=== PATIENT | male | born 1940 | race Caucasian/White ===

== ENCOUNTER → 2022-08-07 | Outpatient (CLI) | payer MEDICARE, BC ==
--- NOTE | 2022-08-07 14:58 | CT ---
EXAMINATION TYPE: CT angio abdomen pelvis DATE OF EXAM: 08/07/2022 COMPARISON: None available HISTORY: 81-year-old male I71.4, Follow up to AAA repair TECHNIQUE: CT of the abdomen and pelvis before and after administration of 100 ml Isovue-370 IV contr ast. Delayed images through the abdominal aorta and coronal/sagittal reconstructions performed. 3-D reconstructions generated on a dedicated independent workstation. CT DLP: 2501 mGycm Automated exposure control for dose reduction was used. FINDINGS: Heart upper limits of normal in size without pericardial effusion. Some emphysematous change in stran dy scarring or atelectasis in the lower lungs. No pleural effusion. There are a few scattered small hepatic cysts are noted measuring up to 1 cm. No abnormal gallbladder distention. Indeterminate 1.6 cm nodule right adrenal gland. On the noncontrast series, this does not meet criter ia for a lipid rich adrenal adenoma. 6 month follow-up CT recommended to reassess. Additional nodular thickening of the left adrenal gland up to 1.7 x 0.9 cm. A few benign cortical cysts within the kidneys measuring up to 9 mm. Symmetric uptake of contrast fro m both kidneys. There is delayed excretion. Correlate with BUN/creatinine to exclude acute kidney inj ury. Ventral abdominal wall mesh repair. No dilated bowel, free fluid, or free air. No mesenteric or retroperitoneal lymphadenopathy. Mild to moderate stool burden. Left-sided colonic diverticulosis. No pericolonic inflammatory change. Some questionable eccentric soft tissue thickening versus adherent stool material along the left late ral wall of the lower rectum, axial image 203. Correlate for any rectal bleeding and with direct insp ection/physical exam to exclude neoplasm here. Prostate gland measures 4.3 cm wide. Bladder partially distended. Patulous right inguinal canal. No a bnormal fluid collection in the pelvis or pelvic lymphadenopathy. Bones: Moderate degenerative disc disease L3-4 and L4-L5. Facet arthropathy lower lumbar spine. Bilat eral L5 pars defect with a trace grade 1 anterolisthesis at L5-S1. 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 There is collateral flow from prominent pancreatico duodenal branches arising from the SMA. There is moderate atherosclerotic narrowing at the proximal S MA. Possible 1.2 cm focal dilatation/protuberance at the origin of the SMA. Moderate atherosclerotic narrowing at the origin of the bilateral renal arteries. There is distal abd ominal aortic repair of the large anteriorly projecting saccular aneurysm which measures up to 8.4 cm wide and 8.2 cm AP. No abnormal contrast is seen within the excluded aneurysmal sac. There is ectasia up to 1.5 cm at the left common iliac artery bifurcation. IMPRESSION: 1. INFRARENAL ABDOMINAL AORTIC ANEURYSM REPAIR. NO ENDOLEAK IDENTIFIED. THE APACHE TRIBE OF [place] SAC SHOWS ANTERIOR SACCULAR PROJECTION AND MEASURES 8.4 X 8.2 CM. RECOMMEND COMPARING THESE MEASUREMENTS WITH ANY AVAIL ABLE OUTSIDE PRIORS. 2. ECTASIA AT THE LEFT COMMON ILIAC ARTERY BIFURCATION AT 1.5 CM. 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 MODERATE NARROWING PROXIMAL SMA. 3. BILATERAL ADRENAL GLAND NODULARITY MEASURING UP TO 1.7 CM. CORRELATE WITH ANY OUTSIDE PRIORS FOR S TABILITY. OTHERWISE, RECOMMEND 6 MONTH FOLLOW-UP ADRENAL MASS PROTOCOL CT TO FURTHER ASSESS. 4. Either adherent stool material or abnormal mural based soft tissue thickening along the left later al wall of the lower rectum. Correlate for any rectal bleeding and with physical exam/direct inspecti on to exclude neoplasm here. 5. Bilateral L5 pars defects with trace grade 1 anterolisthesis at L5-S1. Some emphysematous change i n the lower lungs.
== END | disposition home or self-care (01) ==
LOC: RADCTMAIN 12:56
PROVIDERS: ATTEND Surgery
DX: I71.43 Infrarenal abdominal aortic aneurysm, without rupture (principal); M43.17 Spondylolisthesis, lumbosacral region; J43.9 Emphysema, unspecified
CPT/HCPCS: 74174; Q9967

== ENCOUNTER → 2023-08-15 | Outpatient (CLI) | payer OTHER ==
--- NOTE | 2023-08-15 14:13 | CT ---
EXAMINATION TYPE: CT brain wo con DATE OF EXAM: 08/15/2023 COMPARISON: HISTORY: PAIN IN POSTERIOR UPPER NECK AND POSTERIOR HEAD, PAIN IN NECK WHEN PIVOTING CT DLP: 1116.70 mGycm Automated exposure control for dose reduction was used. FINDINGS: The ventricles, basal cisterns and sulci over convexities are moderately enlarged consistent with mod erate generalized atrophy but appropriate for the patient's age. There is marked diffuse decreased density in the periventricular white matter consistent with marked chronic ischemic white matter demyelination. There is no mass effect or shift of midline structures. There is no acute intra or extra-axial hemorrhage. The posterior fossa including the brainstem, fourth ventricle and cerebellar pontine angles are gross ly normal. The intraorbital contents appear normal and symmetric. Visualized paranasal sinuses and mastoid air cells are well aerated. IMPRESSION: 1. No acute bleed or mass effect. 2. Moderate age-appropriate atrophy. 3. Marked chronic ischemic white matter demyelination.
== END | disposition home or self-care (01) ==
LOC: RADCTMAIN 13:37
DX: I67.82 Cerebral ischemia (principal); G31.1 Senile degeneration of brain, not elsewhere classified; R90.82 White matter disease, unspecified
CPT/HCPCS: 70450

== ENCOUNTER → 2024-01-29 | Outpatient (CLI) | payer OTHER ==
[2024-01-29 11:14] VITALS: BP 155/73; PULSE 81; RESP 16; TEMP 97.7
--- NOTE | 2024-01-29 14:49 | P.PAINPG ---
PQRS Measure Charge Sheet Comment: HISTORY OF PRESENT ILLNESS: A 83 yr old male w at side as a referral from Dr Xie presents today w severe and chronic LBP > 1 yr secondary to DDD, spondylosis and facet arthropathy without myelopathy for evaluation. Pt states pain level is provoked at 10 /10 in intensity, intermittent, localized in the lower lumbar spine, predominantly axial, dull in character w occasional shooting pain towards the R hip. Pain is provoked by walking/ standing for periods > 10 min. Pain is alleviated by PT x 6 wks which ended in Dec 2023, physician guided home exercises/ stretches every night since Dec 2023, heat, medications (Tyl), topical BioFreeze Gel, repositioning and rest . Oswestry axial pain score at 24. PMH: OA, HTN PSH: Bladder CA Excision (2017), Hernia Repair, AAA Repair (2008) SH: Hx of tobacco use, No ETOH use, No illicit drug use. . FH: Noncontributory All: See list Meds: See list REVIEW OF ORGAN SYSTEMS: CONSTITUTIONAL: No fevers or chills. No recent weight loss. NEUROLOGICAL: + numbness and tingling along the distal extremities. No seizure disorders or headaches. MUSCULOSKELETAL: + pain PSYCHIATRIC: Denies current depression or suicidal thoughts. Physical Examinations : Constitutional : Cooperative , not in acute distress . Neurologic : Cranial nerve II to XII intact. No focal neurological deficits. Psychiatric : alert & oriented x 3. Matching mood & appropriate affect. Judgment & insight intact. Musculoskeletal : Cervical Spine Motor strength in the deltoid and biceps: Normal right side. Normal Left side Motor strength biceps and the wrist extensors: Normal right side . Normal left side Motor strength in the triceps muscle: Normal right side. Normal left side Deep tendon reflexes: Normal at the biceps. Normal at Brachioradialis. Normal at triceps Vertebral body tenderness to deep palpation over Cervical facet loading test: positive bilaterally Spurling test: positive bilaterally Neck distraction test: positive bilaterally Jomar sign: positive bilaterally Lumbar spine Motor strength lower extremities ,thigh and legs 5/5 Right side , 5/5 Left side Deep tendon reflexes : Normal Knee Jerk. Normal Ankle Jerk Vertebral body tenderness over L4 Orellana Test positive Lumbar facet Loading Test: positive Right / positive Left Range of motion of the lumbar spine Flexion 30 degrees, extension 10 degrees Straight Leg Raise test: Left/ Right positive at <40 degrees Michi test: positive right / positive left Severe tenderness over the Sacroiliac joint on the Right / Left sides Gaenslen test: positive bilaterally Seated flexion test: positive bilaterally. Sacral spine : Severe tenderness over the Sacroiliac joint: right side / left side Range of motion: Flexion of the lumbar spine <60 degrees Range of motion: Extension of the lumbar spine <20 degrees Gaenslen's Test positive Michi test: positive right side / left side Thigh Thrust Test Sacral Thrust Test Imaging: MRI noncontrast of the lumbar spine from 11/17/2023 reviewed Assessment/ Plan : L4-5 stenosis, Lumbar DDD Recommendation of JOHN L4-L5 #1. May need a series of injections for optimal pain relief. Risks, benefits of procedure discussed and patient verbalized understanding. Admits to anti- coagulant use or medical history of diabetes. Protocol for discontinuation/ continuation of medications estephanie procedure discussed. Minimal anesthesia provided, if clinically indicated, consisting of Versed and Fentanyl. All questions answered. I have spent greater than 30 minutes on patient care today. Dr Mora was available by phone for the evaluation of this patient. The time was used to review the medical records including relevant urine studies and Prescription history (MAPs), review of the available imaging, evaluation and examination of the patient, coordination of care with the medical staff and if applicable referring physicians, as well as creation of the medical record Home Medications: Ambulatory Orders diazePAM [Valium] 5 mg PO DAILY PRN 1 Days #2 tab 01/29/24 Controlled Substance Measures - Controlled Substance Measures Is patient prescribed a controlled substance at discharge?: Yes When asked, does pt state using other controlled substances?: No If prescribed controlled substance>3 days was MAPS reviewed?: Prescribed <3 Days
== END ==
LOC: PNWHC3 09:33
PROVIDERS: ATTEND Specialist
DX: M47.896 Other spondylosis, lumbar region (principal); M51.36 Other intervertebral disc degeneration, lumbar region; M48.061 Spinal stenosis, lumbar region without neurogenic claudication; Z87.891 Personal history of nicotine dependence
CPT/HCPCS: 99211

== ENCOUNTER 2024-02-10 11:26 | Day surgery (SDC) | payer OTHER ==
[~2024-02-10 11:26] MED LIST: LACTATED RINGERS 1,000 ML IV SCH
[2024-02-10 12:11] VITALS: TEMP 97
[2024-02-10] MEDS ORDERED: ROPIVACAINE 5MG/ML 20ML VIAL ONE (12:59)
[2024-02-10] MEDS ORDERED: IOPAMIDOL M200 10 ML VIAL ONE (12:59)
[2024-02-10] MEDS ORDERED: TRIAMCINOLONE ACETONIDE 40 MG/ML 1 ML VIAL ONE (12:59)
[2024-02-10 13:29] VITALS: BP 150/72; PULSE 76; RESP 18
--- NOTE | 2024-02-10 14:01 | P.PCN ---
Date of Procedure: 02/10/24 Surgeon: Alli Mcclellan Pathology: none sent Condition: stable Disposition: PACU Description of Procedure: PREOPERATIVE DIAGNOSIS: 1-Lumbar radiculopathy 2- Lumber Degenerative Disc Diseases. POSTOPERATIVE DIAGNOSIS: 1-Lumbar radiculopathy. 2-Lumbar Degenerative Disc Diseases PROCEDURE 1. Lumbar epidural steroid injection under fluoroscopic guidance at the L4-5 level in the right paramedian approach. 2. Lumbar epidurogram. ANESTHESIA: Local only with 1% lidocaine EBL: Minimal PROCEDURE INDICATION: The patient with low back pain and radiculitis symptoms unresponsive to conservative treatment. Fluoroscopy was used to optimize visualization of the needle placement and to maximize safety. PROCEDURE DESCRIPTION / TECHNIQUE: The patient was seen and identified in the preoperative area. Risks, benefits, complications including but not limited to infections ,bleeding ,allergic reaction to the medications ,nerve damage and not complete pain relief , and alternatives were discussed with the patient. The patient agreed to proceed with the procedure and signed the consent. IV was started, and vital signs were stable. Patient was taken to the OR and time out was completed. The patient was placed in the prone position on procedure table and a pillow was placed under the abdomen to reduce lumbar lordosis. The lumbosacral area was prepped and draped in the usual sterile fashion with ChloraPrep.Patient was closely monitored during the procedure. Conscious sedation was used during the procedure to decrease patients anxiety. Vital signs were monitered during the entire pr ocedure. Using anterior-posterior fluoroscopy, the L4-5 interlaminar space was identified and the skin over this site was marked and then infiltrated with 1% lidocaine subcutaneously. Subsequently, a 20-gauge Tuohy epidural needle was inserted and advanced toward the epidural space using the Loss of resistance to air technique and guided by AP and lateral fluoroscopy. The correct needle position in the epidural space was verified with the injection of 1 mL of the water soluble contrast dye Omnipaque 180 contrast and observing an excellent epidurogram with the epidural spread of the dye, after negative aspiration for blood and CSF and in the absence of paresthesias. Again after negative aspiration, a 8 ml mixture containing 40 mg of Kenalog and 5 ml of preservative free Normal Saline, and 2 ml of preservative free Ropivacaine 0.5% solution was injected and a washout of epidurogram was seen. Needle was withdrawn intact, skin was cleansed, and bandages were applied. patient tolerated procedure well and was transferred to PACU in stable condition.A copy of the needle placement picture was saved to the fluoroscopy machine. COMPLICATIONS: None
--- NOTE | 2024-02-10 14:57 | FL ---
EXAMINATION TYPE: FL guided pain mgmt statistic DATE OF EXAM: 02/10/2024 FLUOROSCOPY Fluoroscopy time of 7.7 seconds was used during lumbar epidural steroid injection. 1 image/s documen t/s the procedure. DAP- 0.66703 mGycm2
== END 2024-02-10 13:30 | disposition home or self-care (01) ==
LOC: ORPAIN 11:26
PROVIDERS: ATTEND Anesthesiology
DX: M51.16 Intervertebral disc disorders with radiculopathy, lumbar region (principal); Z79.82 Long term (current) use of aspirin; Z79.899 Other long term (current) drug therapy
CPT/HCPCS: 62323; J3301; Q9966; J2795

== ENCOUNTER → 2024-02-26 | Outpatient (CLI) | payer OTHER ==
[2024-02-26 11:28] VITALS: BP 149/72; PULSE 61; RESP 16
--- NOTE | 2024-02-26 14:24 | P.PAINPG ---
Objective - Vital Signs Vital signs: Vital Signs Temp Pulse 61 02/26/24 11:27 Resp 16 02/26/24 11:27 BP 149/72 02/26/24 11:27 Pulse Ox 96 02/26/24 11:27 FiO2 Intake & Output 02/25/24 02/26/24 02/26/24 18:59 06:59 18:59 Weight 81.647 kg PQRS Measure Charge Sheet Mode of Arrival: Ambulatory Comment: HISTORY OF PRESENT ILLNESS: A 83 yr old male w at side presents today w severe and chronic LBP > 1 yr secondary to DDD, spondylosis and facet arthropathy without myelopathy for evaluation s/p R paramedian JOHN L4-L5 #1. Pt states he experienced 40% pain relief x 4 wks s/p procedure. Pt states pain level is provoked at 10 /10 in intensity, intermittent, localized in the lower lumbar spine, predominantly axial, dull in character w occasional shooting pain towards the R hip. Pain is provoked by walking/ standing for periods > 10 min. Pain is alleviated by PT x 6 wks which ended in Dec 2023, physician guided home exercises/ stretches every night since Dec 2023, heat, medications, topical repositioning and rest . Oswestry axial pain score at 24. Interventional procedures include JOHN L4-L5 x1 Medications include Tyl, BioFreeze Gel REVIEW OF ORGAN SYSTEMS: CONSTITUTIONAL: No fevers or chills. No recent weight loss. NEUROLOGICAL: + numbness and tingling along the distal extremities. No seizure disorders or headaches. MUSCULOSKELETAL: + pain PSYCHIATRIC: Denies current depression or suicidal thoughts. Physical Examinations : Constitutional : Cooperative , not in acute distress . Neurologic : Cranial nerve II to XII intact. No focal neurological deficits. Psychiatric : alert & oriented x 3. Matching mood & appropriate affect. Judgment & insight intact. Musculoskeletal : Cervical Spine Motor strength in the deltoid and biceps: Normal right side. Normal Left side Motor strength biceps and the wrist extensors: Normal right side . Normal left side Motor strength in the triceps muscle: Normal right side. Normal left side Deep tendon reflexes: Normal at the biceps. Normal at Brachioradialis. Normal at triceps Vertebral body tenderness to deep palpation over Cervical facet loading test: positive bilaterally Spurling test: positive bilaterally Neck distraction test: positive bilaterally Jomar sign: positive bilaterally Lumbar spine Motor strength lower extremities ,thigh and legs 5/5 Right side , 5/5 Left side Deep tendon reflexes : Normal Knee Jerk. Normal Ankle Jerk Vertebral body tenderness over L5 Orellana Test positive Lumbar facet Loading Test: positive Right / positive Left Range of motion of the lumbar spine Flexion 30 degrees, extension 10 degrees Straight Leg Raise test: Left/ Right positive at <40 degrees Michi test: positive right / positive left Severe tenderness over the Sacroiliac joint on the Right / Left sides Gaenslen test: positive bilaterally Seated flexion test: positive bilaterally. Sacral spine : Severe tenderness over the Sacroiliac joint: right side / left side Range of motion: Flexion of the lumbar spine <60 degrees Range of motion: Extension of the lumbar spine <20 degrees Gaenslen's Test positive Michi test: positive right side / left side Thigh Thrust Test Sacral Thrust Test Imaging: MRI noncontrast of the lumbar spine from 11/17/2023 reviewed Assessment/ Plan : L4-5 stenosis, Lumbar DDD Recommendation of JOHN L5-S1 #2. May need a series of injections for optimal pain relief. Risks, benefits of procedure discussed and patient verbalized understanding. Admits to anti- coagulant use or medical history of diabetes. Protocol for discontinuation/ continuation of medications estephanie procedure discussed. All questions answered. I have spent greater than 30 minutes on patient care today. Dr Mora was available by phone for the evaluation of this patient. The time was used to review the medical records including relevant urine studies and Prescription history (MAPs), review of the available imaging, evaluation and examination of the patient, coordination of care with the medical staff and if applicable refe rring physicians, as well as creation of the medical record PQRS Narrative: Blood Pressure 149/72 Scale Used Numeric (1 - 10) Hx Alcohol Use (MH) No Home Medications: Ambulatory Orders diazePAM [Valium] 5 mg PO DAILY PRN 1 Days #2 tab 01/29/24 Aspirin [Adult Low Dose Aspirin EC] 81 mg PO DAILY 02/06/24 Simvastatin 40 mg PO HS 02/06/24 amLODIPine [Norvasc] 10 mg PO DAILY 02/06/24 Controlled Substance Measures - Controlled Substance Measures Is patient prescribed a controlled substance at discharge?: No
== END | disposition home or self-care (01) ==
LOC: PNWHC3 10:58
PROVIDERS: ATTEND Specialist
DX: M51.36 Other intervertebral disc degeneration, lumbar region (principal); M47.816 Spondylosis without myelopathy or radiculopathy, lumbar region; M48.061 Spinal stenosis, lumbar region without neurogenic claudication; Z86.39 Personal history of other endocrine, nutritional and metabolic disease
CPT/HCPCS: 99211

== ENCOUNTER 2024-03-23 10:54 | Day surgery (SDC) | payer OTHER ==
[2024-03-18 15:45] VITALS: BMI 30.1
[2024-03-23 11:17] VITALS: TEMP 97.2
[2024-03-23] MEDS ORDERED: DEXAMETHASONE SOD PHOSPHATE 10 MG/ML 1 ML VIAL ONE (12:26)
[2024-03-23] MEDS ORDERED: IOPAMIDOL M200 10 ML VIAL ONE (12:26)
--- NOTE | 2024-03-23 12:35 | P.PCN ---
Date of Procedure: 03/23/24 Surgeon: Alli Mcclellan Pathology: none sent Condition: stable Disposition: PACU Description of Procedure: Preoperative Diagnosis: lumbar radiculopathy Postoperative Diagnosis: Same as above Procedure(s) Performed: Transforaminal epidural steroid injection for level L5- S1 on the right side under fluoroscopic guidance Anesthesia: local only with lidocaine 1% Surgeon: Alli Mcclellan Condition: stable Disposition: PACU Description of Procedure: . The patient was seen and identified in the preoperative area. Risks, benefits, complications, and alternatives were discussed with the patient. The patient agreed to proceed with the procedure and signed the consent. IV was started, and vital signs were stable. Patient was taken to the OR and time out was completed. The patient was placed in the prone position on procedure table and a pillow was placed under the abdomen to reduce lumbar lordosis. The lumbosacral area was prepped and draped in the usual sterile fashion. Critical pause was taken. Vital signs were closely monitored during the procedure. Conscious sedation was used during the procedure to decrease patients anxiety. Lidocaine 1% was used to numb the skin up at the target points that were chosen as follows: For the L5-S1 level the target point was at the 6 o'clock position of L5 pedicle in the Rt oblique view. The correct view was obtained by squaring off the L5 vertebra on the AP view of fluoroscopy then the C-arm was tilted to the Rt oblique position to an angle at which the superior articular process of the lower vertebra would point to the middle of the pedicle above it at the 6 o'clock position as mentioned above . Then I used 3-1/2 inch 22-gauge Quincke spinal needle to get to the target point mentioned above by touching the inferior edge of the L5 pedicle and then walking off the bone and into the superior part of the L5-S1 foramen using the lateral view of fluoroscopy. I then injected 1 mL of Isovue contrast dye which showed typical epidurogram around the L5 nerve root and into the epidural space. Then I injected 1 mL of lidocaine 1% +10 mg of Decadron.. Patient tolerated procedure well,and was transferred to PACU in stable condition. A copy of the needle placement picture was saved to the fluoroscopy machine.
[2024-03-23 12:57] VITALS: BP 143/70; PULSE 74; RESP 17
--- NOTE | 2024-03-23 21:44 | FL ---
Fluoroscopy INDICATION: Pain FINDINGS: Fluoroscopy time: 11.2 seconds. Total dose area product (DAP) in uGy*m?, mGy*cm? (or similar): 0.05688 Images obtained: 3. IMPRESSION: 1. Documentation of fluoroscopy.
== END 2024-03-23 12:58 | disposition home or self-care (01) ==
LOC: ORPAIN 10:54
PROVIDERS: ATTEND Anesthesiology
DX: M54.16 Radiculopathy, lumbar region (principal); I10 Essential (primary) hypertension; Z79.82 Long term (current) use of aspirin; Z79.899 Other long term (current) drug therapy
CPT/HCPCS: 64483; J1100; Q9966

== ENCOUNTER → 2024-04-08 | Outpatient (CLI) | payer OTHER ==
[2024-04-08 11:01] VITALS: BP 138/61; PULSE 88; RESP 19
--- NOTE | 2024-04-08 14:41 | P.PAINPG ---
PQRS Measure Charge Sheet Comment: HISTORY OF PRESENT ILLNESS: A 83 yr old male w at side presents today w severe and chronic LBP > 1 yr secondary to DDD, spondylosis and facet arthropathy without myelopathy, R Hip DJD for evaluation s/p R TFESI L4-L5 #2. Pt states he experienced 80% pain relief x 2 wks s/p procedure. Pt states pain level is provoked at 8 /10 in intensity, intermittent, localized in the R hip, achy in character without shooting pain. Pain is provoked by walking for periods > 10 min. Pain is alleviated by PT x 6 wks which ended in Dec 2023 (lumbar), physician guided home exercises/ stretches every night since Dec 2023 (lumbar , R hip), heat, medications, topical repositioning and rest . Oswestry axial pain score at 24. Interventional procedures include JOHN L4-L5 x1, R TFESI L4-L5 x1 Medications include Tyl, BioFreeze Gel REVIEW OF ORGAN SYSTEMS: CONSTITUTIONAL: No fevers or chills. No recent weight loss. NEUROLOGICAL: + numbness and tingling along the distal extremities. No seizure disorders or headaches. MUSCULOSKELETAL: + pain PSYCHIATRIC: Denies current depression or suicidal thoughts. Physical Examinations : Constitutional : Cooperative , not in acute distress . Neurologic : Cranial nerve II to XII intact. No focal neurological deficits. Psychiatric : alert & oriented x 3. Matching mood & appropriate affect. Judgment & insight intact. Musculoskeletal : Cervical Spine Motor strength in the deltoid and biceps: Normal right side. Normal Left side Motor strength biceps and the wrist extensors: Normal right side . Normal left side Motor strength in the triceps muscle: Normal right side. Normal left side Deep tendon reflexes: Normal at the biceps. Normal at Brachioradialis. Normal at triceps Vertebral body tenderness to deep palpation over Cervical facet loading test: positive bilaterally Spurling test: positive bilaterally Neck distraction test: positive bilaterally Jomar sign: positive bilaterally Lumbar spine +R Hip Trendelenburg Motor strength lower extremities ,thigh and legs 5/5 Right side , 5/5 Left side Deep tendon reflexes : Normal Knee Jerk. Normal Ankle Jerk Vertebral body tenderness over L5 Orellana Test positive Lumbar facet Loading Test: positive Right / positive Left Range of motion of the lumbar spine Flexion 30 degrees, extension 10 degrees Straight Leg Raise test: Left/ Right positive at <40 degrees Michi test: positive right / positive left Severe tenderness over the Sacroiliac joint on the Right / Left sides Gaenslen test: positive bilaterally Seated flexion test: positive bilaterally. Sacral spine : Severe tenderness over the Sacroiliac joint: right side / left side Range of motion: Flexion of the lumbar spine <60 degrees Range of motion: Extension of the lumbar spine <20 degrees Gaenslen's Test positive Michi test: positive right side / left side Thigh Thrust Test Sacral Thrust Test Imaging: MRI noncontrast of the lumbar spine from 11/17/2023 reviewed Assessment/ Plan : L4-5 stenosis, Lumbar DDD, R Hip DJD Recommendation of HEP x 6 wks, documentation provided. Will sign ARMANDO form for imaging release, but if not available, will order CT non contrast R hip M16.10 . May need a series of injections for optimal pain relief. Risks, benefits of procedure discussed and patient verbalized understanding. Admits to anti- coagulant use or medical history of diabetes. Protocol for discontinuation/ continuation of medications estephanie procedure discussed. All questions answered. I have spent greater than 30 minutes on patient care today. Dr Mora was available by phone for the evaluation of this patient. The time was used to review the medical records including relevant urine studies and Prescription history (MAPs), review of the available imaging, evaluation and examination of the patient, coordination of care with the medical staff and if applicable referring physicians, as well as creation of the medical record PQRS Narrative: Hx Alcohol Use (MH) No Home Medications: Ambulatory Orders Aspirin [Adult Low Dose Aspirin EC] 81 mg PO DAILY 02/06/24 Simvastatin 40 mg PO HS 02/06/24 amLODIPine [Norvasc] 10 mg PO DAILY 02/06/24 Controlled Substance Measures - Controlled Substance Measures Is patient prescribed a controlled substance at discharge?: No
== END ==
LOC: PNWHC3 10:38
PROVIDERS: ATTEND Specialist
DX: M51.36 Other intervertebral disc degeneration, lumbar region (principal); M48.061 Spinal stenosis, lumbar region without neurogenic claudication; M16.11 Unilateral primary osteoarthritis, right hip
CPT/HCPCS: 99211

== ENCOUNTER → 2024-04-30 | Outpatient (CLI) | payer OTHER ==
--- NOTE | 2024-05-19 06:36 | CT ---
Patient: Bill Marti Ordering Physician: Unknown, Unknown ID: [id number] Phone, Pager: Phone: N/A Pager: N/A : [phone] Age/Gender: 83Y, N/A Primary Location: N/A Procedure: CT hip RT wo con S tudy Date: 04/30/2024 9:02:00 AM EXAMINATION TYPE: CT hip RT w con DATE OF EXAM: 04/30/2024 COMPARISON: None HISTORY: Pain CT DLP: mGycm Automated exposure control for dose reduction was used. Unenhanced CT of the right hip was submitted. Images are reviewed in the axial coronal and sagittal data sets. FINDINGS: There is mild osteoarthritis of the right hip joint space. Mild acetabular spurring is seen. There is no evidence for fracture or dislocation. No soft tissue mass or fluid collection seen. No bony destr uctive process noted. Fat-containing right inguinal hernia. IMPRESSION: MILD OSTEOARTHRITIS.
== END | disposition home or self-care (01) ==
LOC: RADCTMAIN 08:49
PROVIDERS: ATTEND Specialist
DX: M16.11 Unilateral primary osteoarthritis, right hip (principal)

== ENCOUNTER → 2024-05-03 | Outpatient (CLI) | payer OTHER ==
--- NOTE | 2024-05-03 14:24 | P.PAINPG ---
PQRS Measure Charge Sheet Comment: HISTORY OF PRESENT ILLNESS: A 83 yr old male w at side presents today w severe and chronic LBP > 1 yr secondary to DDD, spondylosis and facet arthropathy without myelopathy, R Hip DJD for CT results. Pt states pain level is provoked at 8 /10 in intensity, intermittent, localized in the R hip, achy in character without shooting pain. Pain is provoked by walking for periods > 10 min. Pain is alleviated by PT x 6 wks which ended in Dec 2023 (lumbar), physician guided home exercises/ stretches every night since Dec 2023 (lumbar , R hip), heat, medications, topical repositioning and rest . Interventional procedures include JOHN L4-L5 x1, R TFESI L4-L5 x1 Medications include Tyl, BioFreeze Gel REVIEW OF ORGAN SYSTEMS: CONSTITUTIONAL: No fevers or chills. No recent weight loss. NEUROLOGICAL: + numbness and tingling along the distal extremities. No seizure disorders or headaches. MUSCULOSKELETAL: + pain PSYCHIATRIC: Denies current depression or suicidal thoughts. Physical Examinations : Constitutional : Cooperative , not in acute distress . Neurologic : Cranial nerve II to XII intact. No focal neurological deficits. Psychiatric : alert & oriented x 3. Matching mood & appropriate affect. Judgment & insight intact. Musculoskeletal : Cervical Spine Motor strength in the deltoid and biceps: Normal right side. Normal Left side Motor strength biceps and the wrist extensors: Normal right side . Normal left side Motor strength in the triceps muscle: Normal right side. Normal left side Deep tendon reflexes: Normal at the biceps. Normal at Brachioradialis. Normal at triceps Vertebral body tenderness to deep palpation over Cervical facet loading test: positive bilaterally Spurling test: positive bilaterally Neck distraction test: positive bilaterally Jomar sign: positive bilaterally Lumbar spine +R Hip Trendelenburg Motor strength lower extremities ,thigh and legs 5/5 Right side , 5/5 Left side Deep tendon reflexes : Normal Knee Jerk. Normal Ankle Jerk Vertebral body tenderness over L5 Orellana Test positive Lumbar facet Loading Test: positive Right / positive Left Range of motion of the lumbar spine Flexion 30 degrees, extension 10 degrees Straight Leg Raise test: Left/ Right positive at <40 degrees Michi test: positive right / positive left Severe tenderness over the Sacroiliac joint on the Right / Left sides Gaenslen test: positive bilaterally Seated flexion test: positive bilaterally. Sacral spine : Severe tenderness over the Sacroiliac joint: right side / left side Range of motion: Flexion of the lumbar spine <60 degrees Range of motion: Extension of the lumbar spine <20 degrees Gaenslen's Test positive Michi test: positive right side / left side Thigh Thrust Test Sacral Thrust Test Imaging: MRI noncontrast of the lumbar spine from 11/17/[address] non contrast of R hip from 04/30/24 reviewed Assessment/ Plan : L4-5 stenosis, Lumbar DDD, Mild R Hip DJD Recommendation of R intra articular joint injection. Risks, benefits of procedure discussed and patient verbalized understanding. Protocol for discontinuation/ continuation of medications estephanie procedure discussed. All questions answered. I have spent greater than 30 minutes on patient care today. Dr Mora was available by phone for the evaluation of this patient. The time was used to review the medical records including relevant urine studies and Prescription history (MAPs), review of the available imaging, evaluation and examination of the patient, coordination of care with the medical staff and if applicable referring physicians, as well as creation of the medical record PQRS Narrative: Hx Alcohol Use (MH) No Home Medications: Ambulatory Orders Aspirin [Adult Low Dose Aspirin EC] 81 mg PO DAILY 02/06/24 Simvastatin 40 mg PO HS 02/06/24 amLODIPine [Norvasc] 10 mg PO DAILY 02/06/24 Controlled Substance Measures - Controlled Substance Measures Is patient prescribed a controlled substance at discharge?: No
[2024-05-03 15:39] VITALS: BP 151/69; PULSE 75; RESP 16; TEMP 97.1
== END ==
LOC: PNWHC3 09:03
PROVIDERS: ATTEND Specialist
DX: M54.50 Low back pain, unspecified
CPT/HCPCS: 99211

== ENCOUNTER 2024-05-11 08:36 | Day surgery (SDC) | payer OTHER ==
[2024-05-06 11:53] VITALS: BMI 29.0
[2024-05-11 09:47] VITALS: TEMP 97.7
[2024-05-11] MEDS ORDERED: methylPREDNISolone ACETATE 80 MG/ML 1 ML VIAL ONE (10:28)
[2024-05-11] MEDS ORDERED: ROPIVACAINE 5MG/ML 20ML VIAL ONE (10:28)
[2024-05-11 10:45] VITALS: RESP 15
[2024-05-11 10:53] VITALS: BP 146/94; PULSE 80
--- NOTE | 2024-05-11 10:54 | P.PCN ---
Description of Procedure: Pre operative Diagnosis: Right-sided Trochanteric Bursitis Postprocedure diagnosis: As above. Procedure: Right greater Trochanteric Bursa injection under fluoroscopic guidance Anesthesia: Local: 1% Lidocaine . Complications: none Indications for Procedure: Patient had a history of greater trochanteric bursitis. Tried conservative therapy with minimal response. Came here for intervention procedure. Procedure and Findings: The patient was seen and examined. The written informed consent was obtained after explaining the risks, benefits and alternatives of the procedure to the patient. Patient agreed to proceed for the procedure signed the informed consent. The patient was brought to the procedure room and was placed in lateral position on the operating table. The skin preparation was done with ChloraPrep 1, and draping was done in usual sterile fashion. Sterile technique was observed throughout the procedure. Using fluoroscope in the AP/lateral view, the greater trochanter was identified. The middle of the greater trochanter was targeted for needle placement. 3 ml of 1% Lidocaine was injected with a 25 gauge needle to achieve adequate local anesthesia of the skin and subcutaneous tissue. then 22 gauge 3.5 inch needle was introduced and advanced into the target area under direct fluoroscopic guidance. A bony contact was felt and the needle was withdrawn for about two millimeters. A negative aspiration was confirmed. then total of 10ml solution containing depo-medrol 40 mg and 9 ml of 0.5% preservative-free ropivacaine was injected slowly. The needle was removed intact, area was cleaned and bandage was applied. The patient tolerated the procedure very well. Additional comments: None Disposition : The patient was transferred to the recovery room and remained stable until discharged home. The patient was given detailed discharge instructions for infection, bleeding, increased pain at the injection site, and was advised to seek immediate medical attention should significant side effects develop. Patient was routinely examined by RN before discharging home. The patient will be followed up with Pain Clinic within 3 weeks.
--- NOTE | 2024-06-08 18:20 | FL ---
EXAMINATION TYPE: FL guided pain mgmt statistic DATE OF EXAM: 05/11/2024 10:41 AM COMPARISON: Pre Operative Images if available both CT/MRI or plain film CLINICAL INDICATION: Male, 83 years old with history of RT bursa injection; TECHNIQUE: FL guided pain mgmt statistic, multiple fluoroscopic images provided for procedure. Total fluoroscopy time: 21 seconds Total submitted images to PACS: 1 DAP: [id number] mGym2 Gycm2 uGym2 cGycm2 or equivalent. FINDINGS: Fluoroscopic images during injection for pain management demonstrate multilevel degeneration changes throughout the spine. No evidence for fracture. No acute process identified. IMPRESSION: 1. No evidence for intraoperative complication. 2. Please see the operative/procedural note for further details. [facility], , 06/08/2024 6:17 PM
== END 2024-05-11 10:53 | disposition home or self-care (01) ==
LOC: ORPAIN 08:36
PROVIDERS: ATTEND Pain Medicine Interventional Pain Medicine
DX: M70.61 Trochanteric bursitis, right hip (principal)
CPT/HCPCS: 20610

== ENCOUNTER → 2024-05-24 | Outpatient (CLI) | payer OTHER ==
[2024-05-24 08:57] VITALS: BP 160/72; PULSE 60; RESP 16; TEMP 97.6
--- NOTE | 2024-05-24 15:08 | P.PAINPG ---
PQRS Measure Charge Sheet Comment: HISTORY OF PRESENT ILLNESS: A 83 yr old male w at side presents today w severe and chronic LBP > 1 yr secondary to radiculopathy, spondylosis, facet arthropathy without myelopathy, R Hip DJD and BL Sacroiliitis for evaluation s/p R intra articular joint injection #1. Pt states he experienced 10 % pain relief x 2 wks s/p procedure. Pt states pain level is provoked at 6 /10 in intensity, intermittent, localized in the R hip, achy in character w shooting pain down R> L buttocks. Pain is provoked by walking for periods > 10 min. Pain is alleviated by PT x 6 wks which ended in Dec 2023 (lumbar), physician guided home exercises/ stretches every night since Dec 2023 (lumbar , R hip), heat, medications, topical repositioning and rest . Interventional procedures include JOHN L4-L5 x1, R TFESI L4-L5 x1, R intra articular joint injection x1 Medications include Tyl, BioFreeze Gel REVIEW OF ORGAN SYSTEMS: CONSTITUTIONAL: No fevers or chills. No recent weight loss. NEUROLOGICAL: + numbness and tingling along the distal extremities. No seizure disorders or headaches. MUSCULOSKELETAL: + pain PSYCHIATRIC: Denies current depression or suicidal thoughts. Physical Examinations : Constitutional : Cooperative , not in acute distress . Neurologic : Cranial nerve II to XII intact. No focal neurological deficits. Psychiatric : alert & oriented x 3. Matching mood & appropriate affect. Judgment & insight intact. Musculoskeletal : Cervical Spine Motor strength in the deltoid and biceps: Normal right side. Normal Left side Motor strength biceps and the wrist extensors: Normal right side . Normal left side Motor strength in the triceps muscle: Normal right side. Normal left side Deep tendon reflexes: Normal at the biceps. Normal at Brachioradialis. Normal at triceps Vertebral body tenderness to deep palpation over Cervical facet loading test: positive bilaterally Spurling test: positive bilaterally Neck distraction test: positive bilaterally Jomar sign: positive bilaterally Lumbar spine +R Hip Trendelenburg Motor strength lower extremities ,thigh and legs 5/5 Right side , 5/5 Left side Deep tendon reflexes : Normal Knee Jerk. Normal Ankle Jerk Vertebral body tenderness over L5 Orellana Test positive Lumbar facet Loading Test: positive Right / positive Left Range of motion of the lumbar spine Flexion 30 degrees, extension 10 degrees Straight Leg Raise test: Left/ Right positive at <40 degrees Michi test: positive right / positive left Severe tenderness over the Sacroiliac joint on the Right / Left sides Gaenslen test: positive bilaterally Seated flexion test: positive bilaterally. Sacral spine : Severe tenderness over the Sacroiliac joint: right side / left side Range of motion: Flexion of the lumbar spine <60 degrees Range of motion: Extension of the lumbar spine <20 degrees Gaenslen's Test positive R> L Michi test: positive right side > left side Thigh Thrust Test BL positive Sacral Thrust Test Imaging: MRI noncontrast of the lumbar spine from 11/17/[address] non contrast of R hip from 04/30/24 reviewed Assessment/ Plan : L4-5 stenosis, Lumbar DDD, Mild R Hip DJD, BL Sacroiliitis Recommendation of BL SI injection #1. Risks, benefits of procedure discussed and patient verbalized understanding. Protocol for discontinuation/ continuation of medications estephanie procedure discussed. All questions answered. I have spent greater than 30 minutes on patient care today. Dr Mora was available by phone for the evaluation of this patient. The time was used to review the medical records including relevant urine studies and Prescription history (MAPs), review of the available imaging, evaluation and examination of the patient, coordination of care with the medical staff and if applicable referring physicians, as well as creation of the medical record - Pain Location Right Hip Non-Pharmacological Interventions: Distraction Pharmacological Interventions: PRN Medication PQRS Narrative: Hx Alcohol Use (MH) No Home Medications: Ambulatory Orders Aspirin [Adult Low Dose Aspirin EC] 81 mg PO DAILY 02/06/24 Simvastatin 40 mg PO HS 02/06/24 amLODIPine [Norvasc] 10 mg PO DAILY 02/06/24 Controlled Substance Measures - Controlled Substance Measures Is patient prescribed a controlled substance at discharge?: No
== END ==
LOC: PNWHC3 08:21
PROVIDERS: ATTEND Specialist
DX: M25.551 Pain in right hip
CPT/HCPCS: 99211

== ENCOUNTER 2024-06-08 10:52 | Day surgery (SDC) | payer BC, MEDICARE, OTHER ==
[2024-06-03 10:39] VITALS: BMI 29.0
[2024-06-08 11:10] VITALS: RESP 16; TEMP 97.4
[2024-06-08] MEDS ORDERED: TRIAMCINOLONE ACETONIDE 40 MG/ML 1 ML VIAL ONE (11:51)
[2024-06-08] MEDS ORDERED: IOPAMIDOL M200 10 ML VIAL ONE (11:51)
--- NOTE | 2024-06-08 11:58 | P.PCN ---
Date of Procedure: 06/08/24 Description of Procedure: Pre- and Post-operative Diagnosis: Sacroilitis and Lumbar Spondylosis Procedure: Bilateral Sacroiliac Joint injection under biplanar fluoroscopy Bilateral Sacroiliac joint arthrogram Surgeon: Yomaira Hopkins Anesthesia: Local: 1% Lidocaine, IV sedation: None. Complications: none EBL : None Specimen removed: None Fluoroscopic image: Saved to patient electronic medical records. Indications for Procedure: The patient is well known to our pain clinic. Failed with the conservative pain management therapy. So scheduled for bilateral sacroiliac joint injection with fluoroscopic guidance. Procedure and Findings: The patient was seen and examined in the holding area. The written informed consent was obtained after explaining the risks, benefits and alternatives of the procedure to the patient. The patient was brought to the procedure room and was placed in the prone position on the operating room table. A pillow was placed under the lower abdomen. The anesthesia was started as mentioned above and monitoring was done with noninvasive blood pressure cuff, EKG and pulse oximetry. The skin preparation was done with ChloraPrep, and draping was done in usual sterile fashion. Sterile technique was observed throughout the procedure. AP and little oblique fluoroscopic views of the sacral spine and pelvis were obtained to identify the right sacroiliac joint. About one cm above the inferior margin of the right sacroiliac joint was marked for needle entry. 2 mL ml of 1% Lidocaine was injected with a 25 gauge needle to achieve adequate local anesthesia of the skin and subcutaneous tissue. A 25 gauge 3.5 inch spinal needle was introduced and advanced into the target area under direct fluoroscopic guidance. A contact was felt and the needle was advanced little further. No parathesia was noted. A negative aspiration was confirmed and then 0.5 ml Isovue was injected. A good dye spread was seen along the joint space. A total of 3 mL ml solution containing Kenalog 20 mg and 2.5 ml of 1% preservative-free lidocaine was injected slowly. The needles were removed intact. Entire procedure repeated on the left side. Area was cleaned and bandages were applied. Disposition : The patient tolerated the procedure very well. The patient was transferred to the recovery room and remained stable until discharged home. The patient was given detailed discharge instructions for infection, bleeding, and increased pain at the injection site, and was advised to seek immediate medical attention should significant side effects develop. The patient will be followed up with our Pain Clinic within 4 weeks for a repeat procedure if the procedure helpful.
[2024-06-08 12:04] VITALS: BP 161/78; PULSE 71
--- NOTE | 2024-06-08 17:07 | FL ---
EXAMINATION TYPE: FL guided pain mgmt statistic DATE OF EXAM: 06/08/2024 12:01 PM COMPARISON: Pre Operative Images if available both CT/MRI or plain film CLINICAL INDICATION: Male, 83 years old with history of M46.1; TECHNIQUE: FL guided pain mgmt statistic, multiple fluoroscopic images provided for procedure. Total fluoroscopy time: 3.9 seconds Total submitted images to PACS: 2 DAP: [id number] mGym2 Gycm2 uGym2 cGycm2 or equivalent. FINDINGS: Fluoroscopic images during injection for pain management demonstrate multilevel degeneration changes throughout the spine. No evidence for fracture. No acute process identified. IMPRESSION: 1. No evidence for intraoperative complication. 2. Please see the operative/procedural note for further details. [facility], , 06/08/2024 5:05 PM
== END 2024-06-08 12:15 ==
LOC: ORPAIN 10:52
DX: M46.1 Sacroiliitis, not elsewhere classified

== ENCOUNTER → 2024-06-21 | Outpatient (CLI) | payer BC, MEDICARE, OTHER ==
[2024-06-21 10:35] VITALS: BP 165/75; PULSE 73; RESP 16; TEMP 96.9
--- NOTE | 2024-06-21 14:49 | P.PAINPG ---
PQRS Measure Charge Sheet Comment: HISTORY OF PRESENT ILLNESS: A 83 yr old male w at side presents today w severe and chronic LBP > 1 yr secondary to radiculopathy, spondylosis, facet arthropathy without myelopathy, R Hip DJD and BL Sacroiliitis for evaluation s/p BL SI injection. Pt states he experienced >50 % pain relief x 2 wks s/p procedure. Pt states pain level is provoked at 6 /10 in intensity, intermittent, localized in the lower lumbar spine, achy in character without shooting pain. Pain is provoked by walking for periods > 10 min. Pain is alleviated by PT x 6 wks which ended in Dec 2023 (lumbar), physician guided home exercises/ stretches every night since Dec 2023 (lumbar , R hip), heat, medications, topical repositioning and rest . Interventional procedures include JOHN L4-L5 x1, R TFESI L4-L5 x1, R intra articular joint injection x1, BL SI x1 (Jun 2024) Medications include Tyl, BioFreeze Gel REVIEW OF ORGAN SYSTEMS: CONSTITUTIONAL: No fevers or chills. No recent weight loss. NEUROLOGICAL: + numbness and tingling along the distal extremities. No seizure disorders or headaches. MUSCULOSKELETAL: + pain PSYCHIATRIC: Denies current depression or suicidal thoughts. Physical Examinations : Constitutional : Cooperative , not in acute distress . Neurologic : Cranial nerve II to XII intact. No focal neurological deficits. Psychiatric : alert & oriented x 3. Matching mood & appropriate affect. Judgment & insight intact. Musculoskeletal : Cervical Spine Motor strength in the deltoid and biceps: Normal right side. Normal Left side Motor strength biceps and the wrist extensors: Normal right side . Normal left side Motor strength in the triceps muscle: Normal right side. Normal left side Deep tendon reflexes: Normal at the biceps. Normal at Brachioradialis. Normal at triceps Vertebral body tenderness to deep palpation over Cervical facet loading test: positive bilaterally Spurling test: positive bilaterally Neck distraction test: positive bilaterally Jomar sign: positive bilaterally Lumbar spine +R Hip Trendelenburg Motor strength lower extremities ,thigh and legs 5/5 Right side , 5/5 Left side Deep tendon reflexes : Normal Knee Jerk. Normal Ankle Jerk Vertebral body tenderness over L5 Orellana Test positive Lumbar facet Loading Test: positive Right / positive Left L4-L5, L5-S1 Range of motion of the lumbar spine Flexion 30 degrees, extension 10 degrees Straight Leg Raise test: Left/ Right positive at <40 degrees Michi test: positive right / positive left Severe tenderness over the Sacroiliac joint on the Right / Left sides Gaenslen test: positive bilaterally Seated flexion test: positive bilaterally. Sacral spine : Severe tenderness over the Sacroiliac joint: right side / left side Range of motion: Flexion of the lumbar spine <60 degrees Range of motion: Extension of the lumbar spine <20 degrees Gaenslen's Test positive R> L Michi test: positive right side > left side Thigh Thrust Test BL positive Sacral Thrust Test Imaging: MRI noncontrast of the lumbar spine from 11/17/[address] non contrast of R hip from 04/30/24 reviewed Assessment/ Plan : L4-5 stenosis, Lumbar radiculopathy, Mild R Hip DJD, BL Sacroiliitis Recommendation of BL MBB L4-L5/ L5-S1 #1. Risks, benefits of procedure discussed and patient verbalized understanding. Protocol for discontinuation/ continuation of medications estephanie procedure discussed. Minimal anesthesia including Fentanyl and Versed if clinically indicated. Will followup w Dr Xie to explore additional treatment options. All questions answered. I have spent greater than 30 minutes on patient care today. Dr Mora was available by phone for the evaluation of this patient. The time was used to review the medical records including relevant urine studies and Prescription history (MAPs), review of the available imaging, evaluation and examination of the patient, coordination of care with the medical staff and if applicable referring physicians, as well as creation of the medical record PQRS Narrative: Hx Alcohol Use (MH) No Home Medications: Ambulatory Orders Aspirin [Adult Low Dose Aspirin EC] 81 mg PO DAILY 02/06/24 Simvastatin 40 mg PO HS 02/06/24 amLODIPine [Norvasc] 10 mg PO DAILY 02/06/24 Controlled Substance Measures - Controlled Substance Measures Is patient prescribed a controlled substance at discharge?: No
== END ==
LOC: PNWHC3 08:54
PROVIDERS: ATTEND Specialist
DX: M46.1 Sacroiliitis, not elsewhere classified
CPT/HCPCS: 99211

== ENCOUNTER → 2024-08-09 | Outpatient (CLI) | payer OTHER ==
--- NOTE | 2024-08-10 14:09 | US ---
EXAMINATION TYPE: US arterial LE single level DATE OF EXAM: 08/09/2024 1:58 PM COMPARISONS: CTA ABD/Pelvis 2021. CLINICAL INDICATION: Male, 83 years old with history of M79.606 PAIN IN LEG, UNSPECIFIED; pain TECHNIQUE: Systolic pressures were taken of the upper and lower extremity arteries with ankle-brachia l indices and toe brachial indices calculated bilaterally. History of: Smoker: Prior Hypertension: No Diabetic: No Hyperlipidemia: Yes TIA/CVA: No Previous Vascular Surgery: AAA Repair 2008 CAD: No VA: No Vascular Ulcers: No Claudication: Yes Gangrene: No FINDINGS: Doppler Waveforms: Right: Left: Pulse Volume Recording: Pressure Gradients: Brachial Artery systolic pressure: Right: 133 Left: 135 Posterior Tibial artery systolic pressure: Right: CNO Left: CNO Dorsalis Pedis artery systolic pressure: Right: CNO Left: CNO Toe artery systolic pressure: Right: 54 Left: 91 Ankle-Brachial Indices: Right: CNO Left: CNO (Vessel hardening > 1.4; Normal 0.9 - 1.4, Moderate 0.7 - 0.9, Severe 0.5-0.7) Toe Brachial Indices: Right: 0.4 Left: 0.67 (Normal > 0.6; Mild 0.35 - 0.59, Moderate 0.12 - 0.34, Severe <0.12) IMPRESSION: 1 Many valuations could not be obtained likely related to severe vessel hardening. [facility], , 08/10/2024 2:06 PM
== END | disposition home or self-care (01) ==
LOC: RADUSWWP 13:13
DX: E78.5 Hyperlipidemia, unspecified (principal); M79.606 Pain in leg, unspecified; Z87.891 Personal history of nicotine dependence
CPT/HCPCS: 93922

== ENCOUNTER → 2025-01-03 | Outpatient (CLI) | payer OTHER ==
[2025-01-03 10:22] LABS: INR 0.9 (<1.2); Partial Thromboplastin Time 23.1 sec (22.0-30.0); Prothrombin Time 10.5 sec (10.0-12.5)
[2025-01-03 15:38] LABS: HGB 13.9 g/dL (13.0-17.0); MCH 29.8 pg (27.0-32.0); MCHC 32.3 g/dL (32.0-37.0); MCV 92.3 FL (80.0-97.0); Mean Platelet Volume 11.6 FL (9.5-12.2); NRBC Per 100 WBC 0 X 10*3/uL (0.00-0.01); Platelet Count 183 X 10*3/uL (140-440); RBC 4.66 X 10*6/uL (4.40-5.60); RDW 14.1 % (11.5-14.5); WBC 5.86 X 10*3/uL (4.50-10.00)
[2025-01-03 15:50] LABS: ALT 21 U/L (10-49); AST 21 U/L (14-35); Albumin 4.2 g/dL (3.8-4.9); Albumin/Globulin Ratio 1.83 Ratio (1.60-3.17); Alkaline Phosphatase 82 U/L (41-126); BUN/Creat Ratio 13.55 Ratio (12.00-20.00); Blood Urea Nitrogen 14.9 mg/dL (9.0-27.0); Calcium 9.3 mg/dL (8.7-10.3); Carbon Dioxide 22.9 mmol/L (21.6-31.8); Chloride 108 mmol/L (96-109); Globulin 2.3 g/dL (1.6-3.3); Glucose 126 mg/dL (70-110); Potassium 4.5 mmol/L (3.5-5.5); Sodium 141 mmol/L (135-145); Total Bilirubin 0.3 mg/dL (0.3-1.2); Total Protein 6.5 g/dL (6.2-8.2)
== END | disposition home or self-care (01) ==
LOC: LABWHC1 08:44
PROVIDERS: ATTEND Surgery
DX: Z01.812 Encounter for preprocedural laboratory examination (principal)
CPT/HCPCS: 36415; 80053; 85027; 85610; 85730; 86850; 86900; 86901

== ENCOUNTER 2025-01-05 05:33 | Inpatient (IN) | payer OTHER ==
[2024-12-30 11:36] VITALS: BMI 29.3
[2025-01-05] MEDS ORDERED: fentaNYL (PF) 50 MCG/ML 2 ML AMP IV PRN (06:12)
[2025-01-05] MEDS: IV FLUID CONTINUATION 1,000 ML IV ONE ×3 (06:16→10:17)
[2025-01-05] MEDS: ONDANSETRON 4 MG/2 ML VIAL IVP ONE (06:50)
[2025-01-05] MEDS: DEXAMETHASONE SOD PHOSPHATE 4 MG/ML 1 ML VIAL IV ONE (06:51)
[2025-01-05] MEDS: LACTATED RINGERS 1,000 ML IV SCH (06:51)
[2025-01-05] MEDS: MIDAZOLAM 2 MG/2 ML VIAL IV ONE (06:57)
[2025-01-05] MEDS ORDERED: PHENYLEPHRINE 10 MG/ML VIAL ONE (07:25)
[2025-01-05] MEDS ORDERED: ROCURONIUM 10 MG/ML (5 ML VIAL) IV ONE (07:25)
[2025-01-05] MEDS ORDERED: GLYCOPYRROLATE 0.2 MG/ML 2 ML VIAL ONE (07:25)
[2025-01-05] MEDS ORDERED: PROPOFOL 10 MG/ML 20 ML VIAL IV ONE (07:25)
[2025-01-05] MEDS ORDERED: ePHEDrine 50 MG/ML 1 ML VIAL ONE (07:25)
[2025-01-05] MEDS ORDERED: SUCCINYLCHOLINE CHLORIDE 200 MG/10 ML VIAL IV ONE (07:25)
[2025-01-05] MEDS ORDERED: HEPARIN SODIUM,PORCINE 10,000 UNIT/ML 1 ML VIAL ONE (07:25)
[2025-01-05] MEDS ORDERED: LIDOCAINE 1% INJ 10MG/ML (20 ML MDV) ONE (07:25)
[2025-01-05] MEDS ORDERED: NEOSTIGMINE 1 MG/ML 10 ML VIAL ONE (07:25)
[2025-01-05] MEDS ORDERED: fentaNYL (PF) 50 MCG/ML 2 ML AMP ONE (07:25)
[2025-01-05] MEDS: ceFAZolin 2 GM in DEXTROSE 5% IN WATER 50 ML IVPB PRN (07:30)
--- NOTE | 2025-01-05 07:42 | P.GSHP ---
History of Present Illness H&P Date: 01/05/25 Chief Complaint: leg pain 84 year old gentleman with history of PAD, AAA, presents to the hospital for elective femoral endarterctomy and possible fem-fem bypass. He states unable to walk more than 150 feet without severe pain in the right leg. He had arterial Doppler which demonstrated GIN of 0.4 on the right. Previous CTA demonstrated calcific disease at the right femoral artery. He denies any fevers, chils, chest pain or shortness of breath. - Review of Systems All systems: negative (what is mentioned in the PMH or HPI) Past Medical History Past Medical History: Cancer, Hyperlipidemia, Hypertension, Osteoarthritis (OA), Vascular Disorder Additional Past Medical History / Comment(s): Hx bladder cancer 2018 with surgery, hx AAA - repaired 2008, chronic right hip/leg pain. History of Any Multi-Drug Resistant Organisms: None Reported Past Surgical History: Bladder Surgery Additional Past Surgical History / Comment(s): Bladder cancer removed, AAA repair. Past Anesthesia/Blood Transfusion Reactions: No Reported Reaction Additional Past Anesthesia/Blood Transfusion Reaction / Comment(s): No hx blood transfusion. Smoking Status: Former smoker - Past Family History Mother History Unknown: Yes Medications and Allergies Home Medications Medication Instructions Recorded Confirmed Type Simvastatin 40 mg PO HS 02/06/24 01/05/25 History amLODIPine [Norvasc] 10 mg PO QAM 02/06/24 01/05/25 History lisinopriL [Zestril] 10 mg PO QAM 12/30/24 01/05/25 History Allergies Allergy/AdvReac Type Severity Reaction Status Date / Time No Known Allergies Allergy Verified 01/05/25 06:23 Surgical - Exam Vital Signs Temp Pulse Resp BP Pulse Ox 97.4 F L 77 16 138/72 96 01/05/25 06:50 01/05/25 06:50 01/05/25 06:50 01/05/25 06:50 01/05/25 06:50 Patient Seen Date: 01/05/25 Patient Seen Time: 07:15 non palpable right femoral, DP or PT pulse palpable left femoral pulse - General well developed, well nourished, no distress Assessment and Plan Assessment: claudication right femoral occlusive disease AAA history of open repair Plan: To OR for right femoral endartectomy and possible fem-fem bypass All questions answered and consent obtained.
--- NOTE | 2025-01-05 07:56 | P.ANPRN ---
Procedure Note - Anesthesia - Invasive Line Left Arterial Line Time Out Performed: Yes (0710) Date of Procedure: 01/05/25 Time of Procedure: 07:12 Location of Patient: PreOp Preparation: Sterile Prep, Sterile Dressing Arterial Line Location: Radial Ultrasound Used: Yes Purpose - Visualization and Identification of Vasculature: Yes Needle Guage: 20-gauge 5 cm Arrow catheter Image Stored and Saved: Yes Narrative: Invasive line placement per sterile protocol utilized.
[2025-01-05] MEDS: THROMBIN (BOVINE) 5,000 UNIT VIAL TOPICAL ONE (08:04)
[2025-01-05] MEDS: SODIUM CHLORIDE 0.9% 1,000 ML BAG IRRIGATION ONE ×2 (08:04→08:07)
[2025-01-05] MEDS: IOPAMIDOL-370 100ML BTL MISCELLANE ONE (09:07)
[2025-01-05] MEDS: IOPAMIDOL-370 100ML BTL INJ ONE (09:07)
--- NOTE | 2025-01-05 11:03 | P.OP ---
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 Postoperative Diagnosis: Same Procedure(s) Performed: Right common femoral, superficial femoral and external iliac artery endarterectomy and patch angioplasty Aortogram with selective right lower extremity angiogram second-order Transluminal balloon angioplasty of the right external iliac artery Transluminal covered stent placement at the right external iliac artery Anesthesia: RILEY Surgeon: Sudhir Barahona Estimated Blood Loss (ml): 150 Pathology: other (Femoral plaque right, right inguinal lymph nodes) Condition: stable Disposition: PACU Indications for Procedure: 84-year-old gentleman who has a longstanding history of of claudication, peripheral arterial disease with previous open aortobiiliac bypass presented to the office secondary to worsening pain in his right lower extremity with ambulation. He states he was only able to walk 100 to 150 feet before severe pain in his calf. He underwent arterial Doppler which demonstrated ABIs less than 0.5 on the right with blunted upstroke and flow to the common femoral and iliac artery. He presents today for open femoral endarterectomy and possible femorofemoral bypass and possible iliac stenting. Operative Findings: Severe atherosclerotic, calcific disease within the femoral artery extending up to the external iliac artery. Severe stenosis at the external iliac artery just distal to the bypass. Description of Procedure: After written and informed consent was obtained for the patient all risk benefits and complications were discussed the patient was brought to the operative suite and laid in the supine position. The area of the abdomen, groins and lower extremities were prepped and draped in usual sterile fashion after appropriate anesthetic was performed per the anesthesiologist. A timeout was performed normal fashion antibiotics were administered prior to incision. An oblique incision was created at the right groin overlying the common femoral artery with a 10 blade scalpel. Dissection was then carried down through the subcutaneous tissue with electrocautery down to the femoral artery. The femoral artery was then meticulous dissected free proximally and distally from the external iliac artery just underneath the inguinal ligament to the profunda and superficial femoral artery. All vessels were then controlled with Vesseloops. Patient was administered heparin and followed with serial ACT's to maintain above 250. Proximal and distal control was then obtained with vascular clamps and arteriotomy was created with 11 blade scalpel extending from the SFA to the external iliac artery. Dense calcific plaque was noted and with a [place] endarterectomy was performed from the SFA, eversion technique for the profunda and to the external iliac artery. Once completed there was flow and diminished pulse noted at the proximal femoral and distal external iliac artery. All free debris was removed. Backbleeding was assessed which was brisk from the profunda and SFA. A 9 mm x 2 cm patch was then cut to size and patch angioplasty was performed with 6-0 Prolene suture in a running fashion. Once completed all control was released revealing diminished pulse within the patch and good backbleeding from the profunda and SFA. At that time the patch was accessed with a Angiocath and angiogram was obtained demonstrating severe stenosis/occlusion of the distal common iliac artery leading into the external iliac artery. At that time a 7 Setswana sheath was then placed followed by an 035 Glidewire and an angled glide catheter and the existing limb of the aortobiiliac bypass was accessed and the aortic aspect was crossed with a wire and the angled glide catheter was placed across the lesion and an aortogram was obtained demonstrating good intraluminal access. 035 Glidewire was then placed within the aorta and a 6 x 40 mm balloon was utilized for balloon angioplasty. The anastomosis from the previous bypass was severely stenotic roughly 70 to 80% and balloon angioplasty was performed across this area with improvement of the flow but the external iliac artery had dense calcification throughout with multiple areas of stenosis. These areas were ballooned as well with some improvement of the flow but on angiogram the flow was not brisk and therefore decision was made to place a covered stent across the anastomosis and into the external iliac artery. An 8 x 100 mm Viabahn stent was then chosen and after the 035 Glidewire was exchanged for an 018 Glidewire wire the Viabahn stent was placed across the previous anastomosis at the iliac limb extending into the external iliac artery just above the patch. Once completed angiogram was obtained demonstrating brisk flow throughout the bypass and into the femoral patch. Good pulsatile flow was noted as well within the patch. Distal angiogram was then obtained demonstrating brisk flow through the SFA and popliteal artery with minimal atherosclerotic disease noted. Two-vessel takeoff was noted at the below knee tibial arteries with one-vessel runoff to the foot being the posterior tibial artery. Once completed all guidewires and catheters were removed as well as the sheath and the patch anatomy was closed with 6-0 Prolene suture. Once completed all control was released revealing good pulsatile blood flow through the patch as well as distally to the SFA and profunda. Good multiphasic signal was noted at the posterior tibial artery. The area was then irrigated with antibiotic solution. Hemostasis was assured with Gelfoam and thrombin. The incision was then closed in a multilayer fashion with 3-0 Vicryl for the deep fascia, subcutaneous tissue and a 4-0 Monocryl for the skin. The skin was cleansed and dressed with a Prevena incisional VAC. The patient taught the procedure well had multiphasic signal at the posterior tibial artery as well as pulses at bilateral femoral arteries and was sent to PACU for recovery.
[2025-01-05] MEDS: HYDROmorphone 0.5 MG/0.5 ML SYRINGE IVP PRN (11:20)
--- NOTE | 2025-01-05 13:10 | FL ---
EXAMINATION TYPE: FL guidance operating room DATE OF EXAM: 01/05/2025 FLUOROSCOPY Femoral Femoral Bypass possible Right Iliac Stenting, 15:04 fluoro, dap 144.84 Gycm2. 1385 images are submitted. [facility], , 01/05/2025 1:07 PM
[2025-01-05] MEDS: ASPIRIN 81 MG PO SCH (18:41)
[2025-01-05] MEDS: CLOPIDOGREL 75 MG TAB PO SCH (18:41)
[2025-01-05] MEDS: ceFAZolin 2 GM in DEXTROSE 5% IN WATER 50 ML IVPB SCH (18:42)
[2025-01-05] MEDS: SODIUM CHLORIDE 0.9% 1,000 ML IV SCH (18:47)
[2025-01-05] MEDS: ATORVASTATIN 20 MG TAB PO SCH (20:08)
[2025-01-06] MEDS: HYDROcodone/APAP 5-325MG 1 EACH TAB PO PRN (01:00)
[2025-01-06] MEDS: lisinopriL 10 MG TAB PO SCH (09:09)
[2025-01-06] MEDS: amLODIPine 10 MG TAB PO SCH (09:09)
[2025-01-06 13:26] LABS: ALT 23 U/L (4-49); AST 97 U/L (17-59); African American GFR (CKD) 68 (>60 ml/min/1.73 sqM); Albumin 3.5 g/dL (3.5-5.0); Alkaline Phosphatase 67 U/L (38-126); Anion Gap 6 mmol/L; Blood Urea Nitrogen 16 mg/dL (9-20); Calcium 9.1 mg/dL (8.4-10.2); Carbon Dioxide 26 mmol/L (22-30); Chloride 107 mmol/L (98-107); Glucose 126 mg/dL (74-99); Magnesium 2.1 mg/dL (1.6-2.3); Non-African American GFR(CKD) 59 (>60 ml/min/1.73 sqM); Potassium 4.6 mmol/L (3.5-5.1); Sodium 139 mmol/L (137-145); Total Bilirubin 0.4 mg/dL (0.2-1.3); Total Protein 5.9 g/dL (6.3-8.2)
[2025-01-06 13:40] LABS: Basophils # (A) 0.03 10*3/uL (0.00-0.10); Basophils % (A) 0.2 %; Eosinophils # (A) 0.01 10*3/uL (0.04-0.35); Eosinophils % (A) 0.1 %; HCT 33.8 % (39.6-50.0); HGB 11.2 g/dL (13.0-17.0); Lymphocytes # (A) 1.35 10*3/uL (0.90-5.00); Lymphocytes % (A) 11.1 %; MCH 30.9 pg (27.0-32.0); MCHC 33.1 g/dL (32.0-37.0); MCV 93.1 fL (80.0-97.0); Mean Platelet Volume 11.2 fL (9.5-12.2); Monocytes % (A) 9.9 %; Neutrophils # (A) 9.52 10*3/uL (1.80-7.70); Neutrophils % (A) 78.3 %; Platelet Count 160 10*3/uL (140-440); RBC 3.63 10*6/uL (4.40-5.60); RDW 14.7 % (11.5-14.5); WBC 12.16 10*3/uL (4.50-10.00)
[2025-01-06] MEDS: CALCIUM CARBONATE 500 MG CHEWABLE PO PRN (15:19)
--- NOTE | 2025-01-06 15:38 | P.CONS ---
History of Present Illness - Reason for Consult Consult date: 01/06/25 - History of Present Illness Subjective: Patient is a 84-year-old male with PAD, AAA, hypertension, hyperlipidemia, came to a presenting for elective femoral endarterectomy and possible femorofemoral bypass. Patient states he has a history of intermittent claudication, in right leg, after walking 100-200 feet secondary to history of his PAD. Previous arterial Doppler demonstrated GIN of 0.4 on the right side. He is a former 17-ymrp-cliu smoker that quit 31 years ago. Denies any alcohol or drug use. States that surgery went well and has been able to urinate a few times since then. Denies any bowel movement. He has been getting up and walking to the bathroom under her own strength. Patient denies any fever, chills, chest pain, shortness of breath, abdominal pain, urinary symptoms. Pertinent positives and negatives as discussed above, a complete review of systems was performed and all other systems are negative. Vitals: Signs Reviewed Physical Exam: General: nontoxic, no distress, appears at stated age Derm: warm, dry, intact Head: atraumatic, normocephalic, symmetric Eyes: EOMI, anicteric sclera Mouth: no lip lesion, mucus membranes moist Cardiovascular: S1 S2 reg, no murmur, rubs, or gallops Lungs: CTA bilateral, no rhonchi, no rales, no accessory muscle use Abdominal: soft, non-tender to palpataion, no appreciable organomegaly Extremities: no gross muscle atrophy, no edema, no contractures Neuro: Alert, Oriented, CNII-XII grossly intact, gait normal Psych: well appearing, appropriate affect Data Received Today: Pertinent Labs: WBC 12.16, Hgb 11.2, MCV 93.1, platelet 160, BUN 16, creatinine 1.14, AST 97, ALT 23 Imaging: N/A Assessment and Plan: Patient is a 84-year-old male with PAD, AAA, hypertension, hyperlipidemia, came to a presenting for elective femoral endarterectomy and possible femorofemoral bypass. #. Hypertension #. Hyperlipidemia Continue amlodipine 10 mg p.o. daily, lisinopril 10 mg p.o. daily Continue Lipitor 20 mg p.o. at bedtime #. Normocytic anemia Likely secondary to acute blood loss from surgery No signs of acute bleeding Follow-up CBC #. Leukocytosis Likely reactive due to recent surgery Patient displays no signs of infection, patient is afebrile #. S/p right common femoral endarterectomy, superficial femoral and external iliac artery endarterectomy and patch angioplasty #. S/p transluminal balloon angioplasty of the right external iliac artery #. S/p transluminal covered stent placement at the right external iliac artery #. PAD DAPT with aspirin 81 mg daily and Plavix 75 mg daily by vascular surgery DVT prophylaxis, antibiotics, pain management deferred to primary vascular surgical team Carey Dennison MD PGY-1 IM Dictation was produced using [employer] dictation software. please excuse any grammatical, word or spelling errors. Thank you for allowing us to participate in the care of this pleasant patient. Do not hesitate to contact us with questions. Someone can be reached from the [facility] hospitalist group all hours of the day at [phone] or via [employer] serve. I have seen and evaluated the patient today. Discussed with the resident and agree with the residents finding and plan as documented in the resident's note. Changes highlighted in blue font. Past Medical History Past Medical History: Cancer, Hyperlipidemia, Hypertension, Osteoarthritis (OA), Vascular Disorder Additional Past Medical History / Comment(s): Hx bladder cancer 2018 with surgery, hx AAA - repaired 2008, chronic right hip/leg pain. History of Any Multi-Drug Resistant Organisms: None Reported Past Surgical History: Bladder Surgery Additional Past Surgical History / Comment(s): Bladder cancer removed, AAA repair. Past Anesthesia/Blood Transfusion Reactions: No Reported Reaction Additional Past Anesthesia/Blood Transfusion Reaction / Comm: No hx blood transfusion. Smoking Status: Former smoker - Past Family History Mother History Unknown: Yes Medications and Allergies Home Medications Medication Instructions Recorded Confirmed Type Simvastatin 40 mg PO HS 02/06/24 01/05/25 History amLODIPine [Norvasc] 10 mg PO QAM 02/06/24 01/05/25 History lisinopriL [Zestril] 10 mg PO QAM 12/30/24 01/05/25 History Allergies Allergy/AdvReac Type Severity Reaction Status Date / Time No Known Allergies Allergy Verified 01/05/25 06:23 Physical Exam Vitals: Vital Signs Temp Pulse Resp BP Pulse Ox 01/06/25 08:00 98.2 F 98 18 141/63 97 01/06/25 04:00 98.5 F 78 16 132/61 99 01/05/25 23:27 97.8 F 98 16 126/61 98 01/05/25 19:42 98 F 109 H 18 121/57 97 01/05/25 18:00 97.2 F L 122 H 18 110/54 96 01/05/25 16:34 99 1 L 107/52 97 01/05/25 15:00 90 16 132/60 96 01/05/25 14:00 98 16 162/66 94 L 01/05/25 13:30 95 16 146/69 98 01/05/25 13:15 84 16 133/63 96 01/05/25 13:00 98 16 126/61 98 01/05/25 12:45 78 16 121/58 94 L 01/05/25 12:30 86 16 121/58 99 Intake and Output 01/05/25 01/06/25 01/06/25 22:59 06:59 14:59 Intake Total 240 240 180 Output Total 560 200 Balance -320 40 180 Intake: Oral 240 240 180 Output: Urine 560 200 Straight 560 Other: Voiding Method Urinal # Voids 100 Weight 82.5 kg Results CBC & Chem 7: 01/06/25 12:53 01/06/25 12:53
[2025-01-06] MEDS ORDERED: CALCIUM CARBONATE 500 MG CHEWABLE PO PRN (16:43)
[2025-01-06] MEDS: CALCIUM CARBONATE 500 MG CHEWABLE PO STA (17:08)
[2025-01-06] MEDS: FAMOTIDINE 20 MG TAB PO SCH (20:16)
[2025-01-07 09:37] VITALS: BP 165/66; PULSE 104; RESP 18; TEMP 97.6
--- NOTE | 2025-01-07 09:51 | P.PN ---
Subjective Progress Note Date: 01/07/25 Patient seen and evaluated bedside. No events overnight. Pertinent positives and negatives as discussed above, a complete review of systems was performed and all other systems are negative. Vitals: Signs Reviewed Physical Exam: General: nontoxic, no distress, appears at stated age Derm: warm, dry, intact Head: atraumatic, normocephalic, symmetric Eyes: EOMI, anicteric sclera Mouth: no lip lesion, mucus membranes moist Cardiovascular: S1 S2 reg, no murmur, rubs, or gallops Lungs: CTA bilateral, no rhonchi, no rales, no accessory muscle use Abdominal: soft, non-tender to palpataion, no appreciable organomegaly Extremities: no gross muscle atrophy, no edema, no contractures Neuro: Alert, Oriented, CNII-XII grossly intact, gait normal Psych: well appearing, appropriate affect Data Received Today: Pertinent Labs: pt refused morning labs Imaging: N/A Assessment and Plan: Patient is a 84-year-old male with PAD, AAA, hypertension, hyperlipidemia, came to a presenting for elective femoral endarterectomy and possible femorofemoral bypass. #. Hypertension #. Hyperlipidemia Continue amlodipine 10 mg p.o. daily, lisinopril 10 mg p.o. daily Continue Lipitor 20 mg p.o. at bedtime #. Normocytic anemia Likely secondary to acute blood loss from surgery No signs of acute bleeding Follow-up CBC #. Leukocytosis Likely reactive due to recent surgery Patient displays no signs of infection, patient is afebrile #. S/p right common femoral endarterectomy, superficial femoral and external iliac artery endarterectomy and patch angioplasty #. S/p transluminal balloon angioplasty of the right external iliac artery #. S/p transluminal covered stent placement at the right external iliac artery #. PAD DAPT with aspirin 81 mg daily and Plavix 75 mg daily by vascular surgery DVT prophylaxis, antibiotics, pain management deferred to primary vascular surgical team Patient is medically optimized for discharge. Carey Dennison MD PGY-1 IM Dictation was produced using [employer] dictation software. please excuse any grammatical, word or spelling errors. I have seen and evaluated the patient today. Discussed with the resident and agree with the residents finding and plan as documented in the resident's note. Changes highlighted in blue font. Objective - Vital Signs Vital signs: Vital Signs Temp 98.3 F 01/07/25 03:32 Pulse 86 01/07/25 03:32 Resp 16 01/07/25 03:32 BP 136/63 01/07/25 03:32 Pulse Ox 94 L 01/07/25 03:32 FiO2 Intake & Output 01/06/25 01/07/25 01/07/25 18:59 06:59 18:59 Intake Total 360 Balance 360 Weight 81.5 kg Intake: Oral 360 Other: Voiding Method Urinal Toilet # Voids 100 2 - Labs CBC & Chem 7: 01/06/25 12:53 01/06/25 12:53 Labs: Abnormal Lab Results - Last 24 Hours (Table) 01/06/25 01/06/25 Range/Units 12:53 12:53 WBC 12.16 H (4.50-10.00) 10*3/uL RBC 3.63 L (4.40-5.60) 10*6/uL Hgb 11.2 L (13.0-17.0) g/dL Hct 33.8 L (39.6-50.0) % Immature Gran # 0.05 H (0.00-0.04) 10*3/uL Neutrophils # 9.52 H (1.80-7.70) 10*3/uL Monocytes # 1.20 H (0.20-1.00) 10*3/uL Eosinophils # 0.01 L (0.04-0.35) 10*3/uL Glucose 126 H (74-99) mg/dL AST 97 H (17-59) U/L Total Protein 5.9 L (6.3-8.2) g/dL
[2025-01-08] MEDS ORDERED: FAMOTIDINE 20 MG TAB PO SCH (09:00)
== END 2025-01-07 09:32 | disposition home or self-care (01) | DRG 271 ==
LOC: 2ORMAIN 05:33 → 3SCARD 17:35
PROVIDERS: ADMIT Surgery; ATTEND Surgery
PROC: 04CH0ZZ Extirpation of Matter from Right External Iliac Artery, Open Approach (ICD-10-PCS; principal; 2025-01-05 07:30)
PROC: 047H0DZ Dilation of Right External Iliac Artery with Intraluminal Device, Open Approach (ICD-10-PCS; principal; 2025-01-05 07:30)
PROC: B41F1ZZ Fluoroscopy of Right Lower Extremity Arteries using Low Osmolar Contrast (ICD-10-PCS; principal; 2025-01-05 07:30)
PROC: 04CK0ZZ Extirpation of Matter from Right Femoral Artery, Open Approach (ICD-10-PCS; principal; 2025-01-05 07:30)
DX: I70.211 Atherosclerosis of native arteries of extremities with intermittent claudication, right leg (principal); D62 Acute posthemorrhagic anemia; I10 Essential (primary) hypertension; Z95.820 Peripheral vascular angioplasty status with implants and grafts; E78.5 Hyperlipidemia, unspecified; D72.828 Other elevated white blood cell count; Z79.899 Other long term (current) drug therapy; Z86.79 Personal history of other diseases of the circulatory system; Z85.51 Personal history of malignant neoplasm of bladder; Z87.891 Personal history of nicotine dependence
CPT/HCPCS: 80053; 83735; 85025